=== PATIENT | female | born 1995 | race Caucasian/White ===

== ENCOUNTER 2018-05-03 08:48 | Emergency (ER) | payer OTHER ==
[2018-05-03 09:59] LABS: URINE BLOOD (Dip) POC Negative (NEGATIVE); URINE GLUCOSE (Dip) POC Negative (NEGATIVE); URINE KETONES (Dip) POC Trace (NEGATIVE); URINE LEUKOCYTE EST (Dip) POC Negative (NEGATIVE); URINE NITRITE (Dip) POC Negative (NEGATIVE); URINE TOTAL PROTEIN POC Negative (NEGATIVE)
[2018-05-03] MEDS: KETOROLAC 60 MG INJ IM (10:06)
[2018-05-03] MEDS: DEXAMETHASONE 10 MG/ML 1 ML INJ PO (10:07)
== END 2018-05-03 10:16 | disposition home or self-care (01) ==
LOC: FTE 08:48
DX: M54.5 Low back pain (principal)
CPT/HCPCS: 81003; 81025; 96372; 99284-25